=== PATIENT | male | born 1970 | race Caucasian/White ===

== ENCOUNTER 2020-08-16 21:07 | Emergency (ER) | payer OTHER | END 2020-08-16 23:55 | disposition home or self-care (01) | LOC: FER 21:07 | DX: S61.212A Laceration without foreign body of right middle finger without damage to nail, initial encounter (principal); F17.210 Nicotine dependence, cigarettes, uncomplicated; Z23 Encounter for immunization; W26.0XXA Contact with knife, initial encounter; Y92.009 Unspecified place in unspecified non-institutional (private) residence as the place of occurrence of the external cause | CPT/HCPCS: 90471; 90715 ==

== ENCOUNTER 2020-09-15 17:08 | Emergency (ER) | payer OTHER ==
[2020-09-15 17:56] LABS: BASOPHIL 0.7 % (0-2); EOSINOPHIL 1.1 % (0-5); HCT 47.1 % (42.0-52.0); LYMPHOCYTE 23.8 % (15-48); MCH 28.2 pg (25.0-31.0); MCHC 31.8 g/dL (32.0-36.0); MCV 88.7 fL (78.0-100.0); MPV 10.2 fL (6.0-9.5); NEUTROPHIL 68.2 % (41-80); NRBC 0; PLT 303 K/uL (150-400); RBC 5.31 M/uL (4.70-6.00); RDW 13.2 % (11.5-14.0); WBC 8.5 K/uL (4.0-10.5)
[2020-09-15 18:16] LABS: ALBUMIN 3.8 g/dL (3.4-5.0); BILIRUBIN - TOTAL 0.2 mg/dL (0.2-1.0); CREATININE 1.05 mg/dL (0.67-1.17); GLOBULIN (CALCULATION) 3.2 g/dL; POTASSIUM 4.2 mmol/L (3.5-5.1)
== END 2020-09-15 20:14 | disposition home or self-care (01) ==
LOC: FER 17:08
PROVIDERS: Emergency Medicine
DX: R07.89 Other chest pain (principal); R11.0 Nausea; K21.9 Gastro-esophageal reflux disease without esophagitis; J45.909 Unspecified asthma, uncomplicated; Z87.442 Personal history of urinary calculi; F17.210 Nicotine dependence, cigarettes, uncomplicated; Z79.899 Other long term (current) drug therapy
CPT/HCPCS: 36415; 71045; 80053; 84484; 85025; 93005